=== PATIENT | male | born 1965 | race Two or more races ===

== ENCOUNTER → 2020-04-16 | Outpatient (CLI) | payer OTHER ==
[~2020-04-16] MED LIST: ASPIRIN EC81 MG PO; ATORVASTATIN CA20 MG PO; BRILINTA 90 MG90 MG PO; CEFDINIR300 MG PO; COL-RITE250 MG PO; FEXOFENADINE HC60 MG PO; FLOMAX 0.4 MG0.4 MG PO; HYDROCHLOROTH12.5 M1 PO; LAMISIL TAB 25250 MG PO; OMEPRAZOLE40 MG PO; VITAMIN D31250 MCG PO
== END ==
LOC: KOH-I 13:12
DX: M48.02 Spinal stenosis, cervical region (principal); M47.812 Spondylosis without myelopathy or radiculopathy, cervical region; Z98.890 Other specified postprocedural states
CPT/HCPCS: 72141; 72146

== ENCOUNTER → 2020-08-27 | Outpatient (CLI) | payer OTHER | LOC: MRI 13:00 | DX: D35.2 Benign neoplasm of pituitary gland (principal) | CPT/HCPCS: 70553; A9577 ==

== ENCOUNTER 2020-10-01 17:37 | Inpatient (IN) | payer OTHER ==
[~2020-10-01] VITALS: Ht 182.9 cm; Wt 90.0 kg
[2020-10-01 17:53] LABS: HEMOGLOBIN 14.3 gm/dl (14.0-17.5); RED BLOOD COUNT 4.14 M/UL (4.20-5.50); WHITE BLOOD COUNT 12.3 K/UL (4.5-11.0)
[2020-10-01 18:45] LABS: BUN/CREATININE RATIO 8 (0-10)
[2020-10-01] MEDS ORDERED: FLOMAX 0.4 MG0.4 MG PO (19:57)
[2020-10-01] MEDS ORDERED: COL-RITE250 MG PO (19:57)
[2020-10-01] MEDS ORDERED: LAMISIL TAB 25250 MG PO (19:58)
[2020-10-01] MEDS ORDERED: HYDROCHLOROTH12.5 M1 PO (19:59)
[2020-10-01] MEDS ORDERED: OMEPRAZOLE40 MG PO (19:59)
[2020-10-01] MEDS ORDERED: FEXOFENADINE HC60 MG PO (20:01)
[2020-10-02 04:30] LABS: HEMOGLOBIN 13.3 gm/dl (14.0-17.5); RED BLOOD COUNT 3.94 M/UL (4.20-5.50); WHITE BLOOD COUNT 12.7 K/UL (4.5-11.0)
[2020-10-02 04:55] LABS: BUN/CREATININE RATIO 7 (0-10)
[2020-10-02] MEDS ORDERED: ASPIRIN EC81 MG PO (08:19)
[2020-10-02] MEDS ORDERED: BRILINTA 90 MG90 MG PO (08:19)
[2020-10-02] MEDS ORDERED: ATORVASTATIN CA20 MG PO (08:19)
[2020-10-02] MEDS ORDERED: VITAMIN D31250 MCG PO (20:01)
[2020-10-03 02:33] LABS: HEMOGLOBIN 12.8 gm/dl (14.0-17.5); RED BLOOD COUNT 3.78 M/UL (4.20-5.50); WHITE BLOOD COUNT 10.6 K/UL (4.5-11.0)
[2020-10-03 03:04] LABS: BUN/CREATININE RATIO 10 (0-10)
[2020-10-03] MEDS ORDERED: CEFDINIR300 MG PO (08:50)
== END 2020-10-03 13:39 | disposition home or self-care (01) | DRG 247 ==
LOC: ER1 17:37 → CDU 18:16 → CCU 19:31 → PROG CARE 10-03 02:18
PROVIDERS: Emergency Medicine; Internal Medicine; ADMIT Internal Medicine Interventional Cardiology
PROC: 027034Z Dilation of Coronary Artery, One Artery with Drug-eluting Intraluminal Device, Percutaneous Approach (ICD-10-PCS; principal; 2020-10-01)
PROC: B2161ZZ Fluoroscopy of Right and Left Heart using Low Osmolar Contrast (ICD-10-PCS; 2020-10-01)
DX: I21.19 ST elevation (STEMI) myocardial infarction involving other coronary artery of inferior wall (principal); J41.1 Mucopurulent chronic bronchitis; K21.9 Gastro-esophageal reflux disease without esophagitis; N40.0 Benign prostatic hyperplasia without lower urinary tract symptoms; I10 Essential (primary) hypertension; R07.9 Chest pain, unspecified; E55.9 Vitamin D deficiency, unspecified; I25.10 Atherosclerotic heart disease of native coronary artery without angina pectoris; G89.29 Other chronic pain; F17.200 Nicotine dependence, unspecified, uncomplicated; M50.30 Other cervical disc degeneration, unspecified cervical region; Z90.49 Acquired absence of other specified parts of digestive tract; Z98.1 Arthrodesis status; Z82.49 Family history of ischemic heart disease and other diseases of the circulatory system
CPT/HCPCS: 36415; 71045; 80048; 80053; 80061; 80307; 82550; 82553; 83036; 83735; 83874; 83880; 84100; 84439; 84443; 84484; 85007; 85025; 85027; 85347; 85610; 85730; 87081; 87205; 97161; 99285; C1725; C1769; C1874; C1887; J0461; J1170; J1644; J2370; J3246; J7040; Q9965; U0002

== ENCOUNTER → 2020-11-15 | Outpatient (CLI) | payer OTHER ==
[~2020-11-15] MED LIST changes: +NICOTINE PATCH1 EAC2 TD
== END ==
LOC: HEART 5 10:30
DX: I25.10 Atherosclerotic heart disease of native coronary artery without angina pectoris (principal); I07.1 Rheumatic tricuspid insufficiency
CPT/HCPCS: 93306

== ENCOUNTER → 2020-11-20 | Outpatient (CLI) | payer OTHER ==
[~2020-11-20] MED LIST changes: -NICOTINE PATCH1 EAC2 TD
== END ==
LOC: EMI 11-15 13:00
DX: M54.16 Radiculopathy, lumbar region (principal); M48.07 Spinal stenosis, lumbosacral region
CPT/HCPCS: 72148

== ENCOUNTER 2020-12-14 00:11 | Emergency (ER) | payer OTHER ==
[~2020-12-14] VITALS: Ht 182.9 cm; Wt 90.7 kg
[2020-12-14 01:09] LABS: HEMOGLOBIN 13.7 gm/dl (14.0-17.5); RED BLOOD COUNT 4.15 M/UL (4.20-5.50); WHITE BLOOD COUNT 12.9 K/UL (4.5-11.0)
[2020-12-14 01:33] LABS: BUN/CREATININE RATIO 9 (0-10)
[2020-12-14] MEDS ORDERED: ATORVASTATIN CA20 MG PO (09:43)
[2020-12-14] MEDS ORDERED: NICOTINE PATCH1 EAC2 TD (09:45)
== END 2020-12-14 16:22 | disposition home or self-care (01) ==
LOC: ER1 00:11 → CDU 03:21
PROVIDERS: Student in an Organized Health Care Education/Training Program
DX: R07.89 Other chest pain (principal); Z20.822 Contact with and (suspected) exposure to COVID-19; I25.10 Atherosclerotic heart disease of native coronary artery without angina pectoris; I25.2 Old myocardial infarction; J44.9 Chronic obstructive pulmonary disease, unspecified; I10 Essential (primary) hypertension; E78.5 Hyperlipidemia, unspecified; N40.0 Benign prostatic hyperplasia without lower urinary tract symptoms; K21.9 Gastro-esophageal reflux disease without esophagitis; G89.29 Other chronic pain; M54.9 Dorsalgia, unspecified; Z79.899 Other long term (current) drug therapy; Z79.82 Long term (current) use of aspirin; Z95.5 Presence of coronary angioplasty implant and graft; F17.210 Nicotine dependence, cigarettes, uncomplicated
CPT/HCPCS: 71045; 80053; 82550; 82553; 83690; 83874; 84484; 85025; 93005; 99285; G0378; U0002

== ENCOUNTER → 2021-01-09 | Outpatient (CLI) | payer OTHER ==
[~2021-01-09] MED LIST changes: +NICOTINE PATCH1 EAC2 TD
== END ==
LOC: HEART 5 11:06
DX: R06.02 Shortness of breath (principal); R53.83 Other fatigue
CPT/HCPCS: 94060; 94729

== ENCOUNTER → 2021-06-06 | Outpatient (CLI) | payer OTHER | LOC: EXRD 13:24 | DX: M25.531 Pain in right wrist (principal) | CPT/HCPCS: 73110 ==

== ENCOUNTER → 2021-09-12 | Outpatient (CLI) | payer OTHER | LOC: EXRD 10:49 | DX: J20.9 Acute bronchitis, unspecified (principal); R06.02 Shortness of breath | CPT/HCPCS: 71046 ==

== ENCOUNTER → 2021-10-02 | Outpatient (CLI) | payer OTHER | LOC: HEART 5 14:14 | DX: R06.02 Shortness of breath (principal); R06.00 Dyspnea, unspecified | CPT/HCPCS: 94060; 94729 ==

== ENCOUNTER → 2021-10-17 | Outpatient (CLI) | payer OTHER | LOC: KOH-I 10:34 | DX: F17.210 Nicotine dependence, cigarettes, uncomplicated (principal); R91.1 Solitary pulmonary nodule | CPT/HCPCS: 71271 ==